=== PATIENT | female | born 1955 | race Caucasian/White ===

== ENCOUNTER 2022-10-28 05:40 | Observation (INO) | payer BC, MEDICARE ==
[2022-10-27 15:37] VITALS: BP 129/57
[~2022-10-28] VITALS: Ht 162.6 cm; Wt 67.6 kg
[2022-10-28] VITALS (27 sets, daily range): BP systolic 114–138; BP diastolic 56–99
[~2022-10-28 05:40] MED LIST: ALBU17AE26 INH; ASCO-134 PO; BCAR25C PO; BIOT5000 PO; BUDE10.2 INH; D3; DHEA; GINK60TA7 PO; GLUCOSAMINE/CHONDRO; MAGNESIUM CITRATE; MELA1TAB28 PO; MSM; TURMERIC; VITA1TAB20 PO; [UNRECOGNIZED DRUG - OTHER]; [UNRECOGNIZED DRUG - OTHER]; [UNRECOGNIZED DRUG - OTHER]; [UNRECOGNIZED DRUG - OTHER]; albuterol 2.5 MG/3 ML nebule NEB ONE; famotidine 20mg tablet PO ONE; oxymetazoline 15 ML nasal spray NS ONE; tranexamic acid inj. 1,000 MG in normal saline IV soln 100ML IV ONE
[2022-10-28] MEDS: ringers solution, lacted 1,000 ML IV SCH ×3 (06:16→19:19)
[2022-10-28] MEDS ORDERED: cocaine 4% topical solution 4ml bottle ONE (06:40)
[2022-10-28] MEDS ORDERED: LIDOcaine 1% W/epiNEPHrine 1:100,000 20ml vial ONE (06:40)
[2022-10-28] MEDS ORDERED: tranexamic acid 100mg/ml inj. ONE (06:40)
[2022-10-28] MEDS ORDERED: mupirocin 2% ointment 22GM ONE (06:41)
[2022-10-28] MEDS ORDERED: oxymetazoline 15 ML nasal spray NS ONE (06:41)
[2022-10-28] MEDS ORDERED: scopolamine 1mg/72 hr patch TD ONE (07:48)
[2022-10-28] MEDS ORDERED: fentaNYL/PF 50MCG/1 ML 2ML syringe ONE (07:55)
[2022-10-28] MEDS ORDERED: midazolam 1 mg/ML 2ml injection ONE (07:56)
[2022-10-28] MEDS ORDERED: sevoflurane 250ml liquid IH ONE (08:15)
[2022-10-28] MEDS ORDERED: ceFAZolin/dextrose 1 GM/50ml ADD-VANTAGE bag IV ONE (08:15)
[2022-10-28] MEDS ORDERED: triamcinolone acetonide 40mg/ml inj ONE (08:20)
[2022-10-28] MEDS ORDERED: cefTAZidime 1gm inj ONE (08:41)
[2022-10-28] MEDS ORDERED: ringers solution, lacted 1,000 ML IV SCH (09:05)
[2022-10-28] MEDS ORDERED: ondansetron/PF 4mg/2ml inj IV PRN (09:05)
[2022-10-28] MEDS ORDERED: morphine 2 MG/ML inj. syringe IV PRN (09:05)
[2022-10-28] MEDS ORDERED: meperidine/PF 25mg/ml syringe IV PRN ×2 (09:05)
[2022-10-28] MEDS ORDERED: epiNEPHrine 1 mg/ml inj ONE (09:05)
[2022-10-28] MEDS ORDERED: LIDOcaine 2% (20mg/ml) 5ml vial ONE (09:27)
[2022-10-28] MEDS ORDERED: acetaminophen 1,000mg/100ml IV 100 ML IV ONE (09:27)
[2022-10-28] MEDS ORDERED: ondansetron/PF 4mg/2ml inj ONE (09:27)
[2022-10-28] MEDS ORDERED: propofol inj 20 ML IV ONE (09:27)
--- NOTE | 2022-10-28 10:00 | NUR ---
Received from OR via BED-PT STAYING THE NIGHT, accompanied by Anesthesiologist-DR. NETTLES and report given. PATIENT A&OX4, C/O PAIN/PRESSURE IN FACE-GETTING PAIN MEDS, V/S WNL, NEUROVASCULAR CHECKS INTACT, SCD ON, NASAL COTTONOIDS IN BILATERAL SINUS W/ NO VISIBLE DRAINAGE SEEN. 20G RUE
[2022-10-28] MEDS: meperidine/PF 25mg/ml syringe IV PRN ×2 (10:06→10:38)
--- NOTE | 2022-10-28 10:19 | NUR ---
PT NAUSEOUS-GIVEN ZOFRAN, HAS SCOP PATCH ALREADY IN PLACE FROM PAS, SITTING UP WITH EMESIS BAG-JUST IN CASE. VSS OTHERWISE, PAIN BETTER
[2022-10-28] MEDS: proCHLORperazine 10 MG/2 ml inj IV PRN ×2 (10:23→10:51)
--- NOTE | 2022-10-28 10:55 | NUR ---
COTTONOIDS REMOVED-NO BLEEDING NOTED, MUSTACHE GAUZE APPLIED, GIVEN MORE PAIN MEDS AND NAUSEA MEDS FOR C/O BOTH ISSUES-NO EMESIS, PT SLEEPY, RESTING QUIETLY, HAVE ROOM BUT NEED ADMIT ORDERS FROM DR QUACH.
[2022-10-28] MEDS ORDERED: salt irrigation nasal spray 45 ML SPRAY NS PRN (11:05)
[2022-10-28] MEDS ORDERED: albuterol 2.5 MG/3 ML nebule NEB PRN (11:10)
[2022-10-28] MEDS: morphine 4 MG/ML inj SYRINge IV PRN ×2 (11:23→13:57)
[2022-10-28] MEDS ORDERED: acetaminophen w/codeine (30MG) #3 tablet PO PRN (13:40)
[2022-10-28] MEDS ORDERED: ondansetron 4mg rapidly disintigrating tab PO PRN (13:40)
--- NOTE | 2022-10-28 14:00 | NUR ---
PT HAS BEEN SLEEPING-PAIN AND NAUSEA BETTER, VSS, REPORT CALLED TO SOMMER RN-ALL QUESTIONS ANSWERED, NO OTHER CHANGES IN ASSESSMENT, NO BLEEDING FORM NOSE NOTED, DISCUSSED D/C INSTRUCTIONS WITH PT AND FLOOR RN. TAKEN WITH ALL BELONGINGS TO [facility], BED LOW AND LOCKED, CALL LIGHT IN REACH.
[2022-10-28] MEDS: albuterol 2.5 MG/3 ML nebule NEB SCH ×2 (16:04→20:21)
--- NOTE | 2022-10-28 18:25 | NUR ---
Patient in room [facility]. I have received report from LAYNE Morris and had the opportunity to ask questions and assume patient care.
[2022-10-28] MEDS ORDERED: non-formulary drug (Budesonide/Formoterol Fumarate (Symbicort 160-4.5 Mcg Inhaler) 2 PUFFS INH SCH (20:00)
[2022-10-28] MEDS: budesonide 0.5mg/2ml UD nebule IH SCH (20:20)
[2022-10-28] MEDS ORDERED: Melatonin 3mg tablet PO SCH (21:00)
[2022-10-29 02:00] VITALS: BP 122/50
[2022-10-29] MEDS: albuterol 2.5 MG/3 ML nebule NEB SCH ×4 (02:47→19:22)
--- NOTE | 2022-10-29 06:31 | NUR ---
Problems reprioritized. Patient report given, questions answered & plan of care reviewed with LAYNE Mcintosh.
[2022-10-29 06:36] VITALS: BP 105/52
--- NOTE | 2022-10-29 06:46 | NUR ---
Patient in room [facility]. I have received report from tootie TILLMAN and had the opportunity to ask questions and assume patient care.
[2022-10-29] MEDS ORDERED: ascorbic acid 500mg tablet PO SCH (08:00)
[2022-10-29] MEDS: budesonide 0.5mg/2ml UD nebule IH SCH ×2 (08:06→19:22)
[2022-10-29 11:48] VITALS: BP 117/61
[2022-10-29 18:00] VITALS: BP 109/50
--- NOTE | 2022-10-29 18:05 | NUR ---
Patient in room [facility]. I have received report from LAYNE Mcintosh and had the opportunity to ask questions and assume patient care.
--- NOTE | 2022-10-29 18:25 | NUR ---
Problems reprioritized. Patient report given, questions answered & plan of care reviewed with Marie TILLMAN.
--- NOTE | 2022-10-29 19:30 | NUR ---
pt discharged. IV removed. pt friend came to take her home. taken out of facility by myself and assisted into vehicle. seat belt buckled. all paperwork reviewed and belongings accounted for.
== END 2022-10-29 19:45 | disposition home or self-care (01) ==
LOC: PAS 05:40 → SUR 3N 12:56
PROVIDERS: ADMIT Otolaryngology; ATTEND Otolaryngology
DX: J32.2 Chronic ethmoidal sinusitis (principal); Z20.822 Contact with and (suspected) exposure to COVID-19; J32.3 Chronic sphenoidal sinusitis; J33.9 Nasal polyp, unspecified; J45.909 Unspecified asthma, uncomplicated; Z79.899 Other long term (current) drug therapy
CPT/HCPCS: 31253; 31256; 31287; 61782; 82948; 87070; 87075; 87635; 93005; 94640; 94760; 96374; 96375; 96376; A6402; C2625; C9803; G0378; J0131; J0171; J0690; J0713; J0780; J2175; J2250; J2270; J2405; J2704; J3010; J3301; J3490; J7050; J7120; A4618; A6449; A7000